=== PATIENT | female | born 1990 | race Hispanic/Latino ===

== ENCOUNTER 2019-04-28 | Emergency (ER) | payer SELFPAY ==
[~2019-04-28] MED LIST: NO HOME MEDS
[2019-04-28 05:17] LABS: URINE BILIRUBIN - DIPSTICK NEGATIVE (NEGATIVE); URINE BLOOD DIPSTICK NEGATIVE (NEGATIVE); URINE COLOR YELLOW; URINE GLUCOSE - DIPSTICK NEGATIVE (NEGATIVE); URINE KETONE NEGATIVE (NEGATIVE); URINE LEUK ESTERASE NEGATIVE (NEGATIVE); URINE NITRITE - DIPSTICK NEGATIVE (Negative); URINE PROTEIN - DIPSTICK NEGATIVE (NEG-TRACE); URINE SPECIFIC GRAVITY 1.025; URINE UROBILINOGEN - DIPSTICK 0.2 E.U./dL (0.2)
[2019-04-28] MEDS ORDERED: ZITHROMAX250 MG PO (07:13)
[2019-04-28] MEDS ORDERED: PROVENTIL0.083 % IN (07:13)
== END 2019-04-28 07:30 | disposition home or self-care (01) | DRG 203 ==
PROVIDERS: Emergency Medicine
DX: J40 Bronchitis, not specified as acute or chronic (principal)

== ENCOUNTER 2020-04-07 08:13 | Emergency (ER) | payer SELFPAY ==
[~2020-04-07] VITALS: Ht 157.5 cm; Wt 62.0 kg
[~2020-04-07 08:13] MED LIST changes: +PROVENTIL0.083 % IN; +ZITHROMAX250 MG PO
[2020-04-07 09:50] LABS: URINE BILIRUBIN - DIPSTICK NEGATIVE (NEGATIVE); URINE BLOOD DIPSTICK NEGATIVE (NEGATIVE); URINE COLOR YELLOW; URINE GLUCOSE - DIPSTICK NEGATIVE (NEGATIVE); URINE KETONE NEGATIVE (NEGATIVE); URINE NITRITE - DIPSTICK NEGATIVE (Negative); URINE PROTEIN - DIPSTICK NEGATIVE (NEG-TRACE); URINE SPECIFIC GRAVITY 1.025; URINE UROBILINOGEN - DIPSTICK 0.2 E.U./dL (0.2)
[2020-04-07 09:53] LABS: URINE LEUK ESTERASE MODERATE (NEGATIVE)
[2020-04-07 09:56] LABS: URINE BACTERIA MANY hpf; URINE SQUAMOUS EPITHELIAL CELL MANY EPI/hpf (0-FEW)
[2020-04-07] MEDS ORDERED: DIFLUCAN150 MG PO (10:24)
[2020-04-07] MEDS ORDERED: NITROFURANTN100 M2 PO (10:24)
[2020-04-07] MEDS ORDERED: METRONIDAZOL500 MG PO (10:24)
[2020-04-07 10:34] VITALS: BP 127/68
== END 2020-04-07 10:40 | disposition home or self-care (01) | DRG 758 ==
LOC: ED 08:13
PROVIDERS: Family Medicine
DX: A64 Unspecified sexually transmitted disease (principal); N76.0 Acute vaginitis; N39.0 Urinary tract infection, site not specified; J45.909 Unspecified asthma, uncomplicated

== ENCOUNTER 2021-01-29 14:18 | Emergency (ER) | payer SELFPAY ==
[~2021-01-29] VITALS: Ht 157.5 cm; Wt 62.0 kg
[~2021-01-29 14:18] MED LIST changes: +DIFLUCAN150 MG PO; +METRONIDAZOL500 MG PO; +NITROFURANTN100 M2 PO
[2021-01-29 15:17] LABS: URINE BILIRUBIN - DIPSTICK NEGATIVE (NEGATIVE); URINE BLOOD DIPSTICK LARGE (NEGATIVE); URINE GLUCOSE - DIPSTICK NEGATIVE (NEGATIVE); URINE KETONE NEGATIVE (NEGATIVE); URINE LEUK ESTERASE TRACE (Negative); URINE NITRITE - DIPSTICK NEGATIVE (Negative); URINE PROTEIN - DIPSTICK 100 mg/dL (NEG-TRACE); URINE SPECIFIC GRAVITY >=1.030; URINE UROBILINOGEN - DIPSTICK 0.2 E.U./dL (0.2)
[2021-01-29 15:19] LABS: URINE CLARITY BLOODY; URINE COLOR BLOODY; URINE RBC TNTC RBC/hpf (0-5)
[2021-01-29 15:20] LABS: URINE BACTERIA FEW hpf; URINE SQUAMOUS EPITHELIAL CELL FEW EPI/hpf (0-FEW)
[2021-01-29] MEDS ORDERED: KEFLEX500 MG PO (15:38)
[2021-01-29] MEDS ORDERED: PYRIDIUM200 MG PO (15:38)
[2021-01-29 16:40] VITALS: BP 148/77
== END 2021-01-29 16:40 | disposition home or self-care (01) | DRG 696 ==
LOC: ED 14:18
PROVIDERS: Emergency Medicine
DX: R30.0 Dysuria (principal); J45.909 Unspecified asthma, uncomplicated

== ENCOUNTER 2021-03-29 21:51 | Emergency (ER) | payer SELFPAY ==
[~2021-03-29] VITALS: Ht 157.5 cm; Wt 58.0 kg
[~2021-03-29 21:51] MED LIST changes: +KEFLEX500 MG PO; +PYRIDIUM200 MG PO
[2021-03-30 01:17] LABS: URINE BILIRUBIN - DIPSTICK NEGATIVE (NEGATIVE); URINE BLOOD DIPSTICK LARGE (NEGATIVE); URINE CLARITY CLEAR; URINE COLOR YELLOW; URINE GLUCOSE - DIPSTICK NEGATIVE (NEGATIVE); URINE KETONE NEGATIVE (NEGATIVE); URINE LEUK ESTERASE MODERATE (Negative); URINE NITRITE - DIPSTICK NEGATIVE (Negative); URINE UROBILINOGEN - DIPSTICK 0.2 E.U./dL (0.2)
[2021-03-30 01:25] LABS: URINE PROTEIN - DIPSTICK NEGATIVE (NEG-TRACE)
[2021-03-30 01:27] LABS: URINE EPITHELIAL CELLS MANY EPI/hpf (0-FEW); URINE RBC 25-50 RBC/hpf (0-5)
[2021-03-30 01:28] LABS: URINE BACTERIA MANY hpf; URINE MUCUS FEW hpf (NONE-FEW); URINE TRICHOMONAS FEW hpf
[2021-03-30] MEDS ORDERED: CLINDAMAX VA (03:12)
[2021-03-30] MEDS ORDERED: DOXYCYCLINE100 MG PO (03:12)
[2021-03-30 03:18] VITALS: BP 128/70
== END 2021-03-30 03:20 | disposition home or self-care (01) | DRG 690 ==
LOC: ED 21:51
PROVIDERS: Emergency Medicine
DX: N39.0 Urinary tract infection, site not specified (principal); N76.0 Acute vaginitis; A59.00 Urogenital trichomoniasis, unspecified; J45.909 Unspecified asthma, uncomplicated; Z20.2 Contact with and (suspected) exposure to infections with a predominantly sexual mode of transmission

== ENCOUNTER 2022-03-03 10:43 | Emergency (ER) | payer MEDICAID ==
[~2022-03-03] VITALS: Ht 157.5 cm; Wt 58.9 kg
[~2022-03-03 10:43] MED LIST changes: +CLINDAMAX VA; +DOXYCYCLINE100 MG PO
[2022-03-03 11:48] LABS: URINE BILIRUBIN - DIPSTICK NEGATIVE (NEGATIVE); URINE BLOOD DIPSTICK NEGATIVE (NEGATIVE); URINE COLOR YELLOW; URINE GLUCOSE - DIPSTICK NEGATIVE (NEGATIVE); URINE KETONE NEGATIVE (NEGATIVE); URINE LEUK ESTERASE NEGATIVE (NEGATIVE); URINE NITRITE - DIPSTICK NEGATIVE (Negative); URINE PROTEIN - DIPSTICK NEGATIVE (NEG-TRACE); URINE SPECIFIC GRAVITY >=1.030; URINE UROBILINOGEN - DIPSTICK 0.2 E.U./dL (0.2)
[2022-03-03] MEDS ORDERED: DIFLUCAN150 MG PO (12:36)
[2022-03-03 12:45] VITALS: BP 127/78
== END 2022-03-03 13:00 | disposition home or self-care (01) ==
LOC: ED 10:43
PROVIDERS: Family Medicine
DX: B37.31 Acute candidiasis of vulva and vagina (principal); J45.909 Unspecified asthma, uncomplicated

== ENCOUNTER 2022-06-26 17:38 | Emergency (ER) | payer MEDICAID ==
[~2022-06-26] VITALS: Ht 157.5 cm; Wt 59.0 kg
[2022-06-26 19:35] LABS: URINE BILIRUBIN - DIPSTICK NEGATIVE (NEGATIVE); URINE BLOOD DIPSTICK SMALL (NEGATIVE); URINE COLOR YELLOW; URINE GLUCOSE - DIPSTICK NEGATIVE (NEGATIVE); URINE KETONE NEGATIVE (NEGATIVE); URINE PH 6.5 (4.5-8.0); URINE PROTEIN - DIPSTICK TRACE mg/dL (NEG-TRACE); URINE SPECIFIC GRAVITY 1.025; URINE UROBILINOGEN - DIPSTICK 0.2 E.U./dL (0.2)
[2022-06-26 19:41] LABS: URINE LEUK ESTERASE SMALL (NEGATIVE); URINE NITRITE - DIPSTICK NEGATIVE (Negative)
[2022-06-26 19:45] LABS: URINE SQUAMOUS EPITHELIAL CELL FEW EPI/hpf (0-FEW); URINE WBC 20-50 WBC/hpf (0-5)
[2022-06-26] MEDS ORDERED: METRONIDAZOLE500 MG PO (20:09)
[2022-06-26] MEDS ORDERED: KEFLEX500 MG PO (20:09)
[2022-06-26 20:21] VITALS: BP 132/86
== END 2022-06-26 20:25 | disposition home or self-care (01) ==
LOC: ED 17:38
PROVIDERS: Nurse Practitioner
DX: N39.0 Urinary tract infection, site not specified (principal); N94.6 Dysmenorrhea, unspecified; J45.909 Unspecified asthma, uncomplicated; B95.7 Other staphylococcus as the cause of diseases classified elsewhere; Z86.19 Personal history of other infectious and parasitic diseases

== ENCOUNTER 2022-08-21 08:19 | Emergency (ER) | payer MEDICAID ==
[~2022-08-21] VITALS: Ht 157.5 cm; Wt 62.0 kg
[~2022-08-21 08:19] MED LIST changes: +METRONIDAZOLE500 MG PO
[2022-08-21 08:45] VITALS: BP 117/88
[2022-08-21 09:01] VITALS: BP 129/88
[2022-08-21 09:18] LABS: BASO% 0.3 % (0-3); EOS% 1.6 % (0-8); HEMATOCRIT 40.6 % (37.0-47.0); HEMOGLOBIN 12.8 g/dl (12.0-16.0); IMMATURE GRANULOCYTES 0.1 % (0.0-5.0); MEAN CELL VOLUME 98.8 fL CALC (80.0-100.0); MEAN CORPUSCULAR HGB 31.1 pG CALC (26.0-32.0); MEAN CORPUSCULAR HGB CONC 31.5 g/dL CAL (32.0-36.0); MONO% 8.4 % (2-13); NEUT% 56.6 % (42-76); RED BLOOD COUNT 4.11 mill/uL (4.20-5.60); RED CELL DISTRI WIDTH 12.7 % (11.5-15.5)
[2022-08-21 09:19] LABS: URINE BILIRUBIN - DIPSTICK NEGATIVE (NEGATIVE); URINE BLOOD DIPSTICK NEGATIVE (NEGATIVE); URINE COLOR YELLOW; URINE GLUCOSE - DIPSTICK NEGATIVE (NEGATIVE); URINE KETONE NEGATIVE (NEGATIVE); URINE LEUK ESTERASE NEGATIVE (NEGATIVE); URINE PROTEIN - DIPSTICK NEGATIVE (NEG-TRACE); URINE UROBILINOGEN - DIPSTICK 0.2 E.U./dL (0.2)
[2022-08-21 09:23] LABS: URINE NITRITE - DIPSTICK NEGATIVE (Negative)
[2022-08-21 09:30] VITALS: BP 109/67
[2022-08-21 09:37] LABS: ALKALINE PHOSPHATASE 77 u/l (38-126); ANION GAP 12 (6-22 (CALC)); BILIRUBIN, TOTAL 0.5 mg/dL (0.02-1.3); BUN 10 mg/dL (7-17); BUN/CREATININE RATIO 17 (12-20 (CALC)); CARBON DIOXIDE 27 mmol/l (22-30); CHLORIDE 106 mmol/l (95-108); CREATININE 0.6 mg/dL (0.5-1.0); GFR FOR AFR.AMER. > 60 ML/MIN (>=60 (CALC)); GFR OTHER RACES > 60 ML/MIN (>=60 (CALC)); SGOT/AST 23 u/l (14-36); SODIUM 141 mmol/l (137-146); TOTAL PROTEIN 8.2 g/dL (6.3-8.2)
[2022-08-21 10:29] VITALS: BP 109/67
== END 2022-08-21 10:33 | disposition home or self-care (01) ==
LOC: ED 08:19
PROVIDERS: Family Medicine
DX: N93.9 Abnormal uterine and vaginal bleeding, unspecified (principal); N94.10 Unspecified dyspareunia; J45.909 Unspecified asthma, uncomplicated